=== PATIENT | female | born 1965 | race Caucasian/White ===

== ENCOUNTER → 2017-01-22 | Day surgery (SDC) | payer BC ==
[~2017-01-22] MED LIST: ALPRAZOLAM PO; CELECOXIB200 MG PO; CERTAGEN PO; CLARITIN10 M3 DOB; CLARITIN10 MG PO; FLONASE16 GM; LEVOTHYROXINE25 MCG PO; LOSARTAN POTASS50 MG PO; MOBIC PO; OMEPRAZOLE20 M2 PO; PRAVASTATIN SOD20 MG PO; RESTASIS MULTI5.5 ML; SEASONALE1 BLIST PA PO; SYNTHROID PO; TYLENOL ARTHRITIS; VICODIN 5/500 T1 TAB PO; VIT B; VITAMIN C PO; WELLBUTRIN PO
--- NOTE | ~2017-01-22 | OR ---
Unit #: [id number] #: [id number] Patient: CAN TEJEDA [id number] [address] [address] [id number] O MR#: [id number] NAME: CAN TEJEDA ROOM: Date of Procedure: 01/22/2017 Admission Date: 01/22/2017 Surgeon: Jere Croft M.D. : 1965 Attending Physician: Jere Croft M.D. Primary Care Physician: Ana Lau M.D. OPERATIVE REPORT PROCEDURE PERFORMED Colonoscopy to cecum. INDICATIONS FOR PROCEDURE A 51-year-old female with average risk for colorectal cancer. MEDICATIONS Monitored anesthesia. POSTOPERATIVE FINDINGS 1. Colonoscopy completed to cecum. Prep was good. No polyps, masses or colitis. 2. Diverticulosis noted. PLAN Repeat colonoscopy in 10 years. DESCRIPTION OF PROCEDURE The patient was explained of the procedure, risks, and benefits along with risks and benefits of anesthesia. She was brought to the endoscopy room. Propofol anesthesia was given. Rectal exam was done, which was normal. Colonoscope was lubricated, passed up the rectum, advanced under direct vision all the way to the cecum. Cecum was identified by ileocecal valve and appendiceal orifice. I then started to pull the scope out carefully looking. No polyps, masses or colitis were seen. Mucosa was normal and healthy. I retroflexed in the rectum. Small hemorrhoids seen. The scope was gently pulled out. She tolerated it well. Dictated by... Vito Stevenson/sulaiman TD: 01/23/2017 01:50 JOB #: [id number] CC: Ana Lau M.D. Unit #: [id number] #: [id number] Patient: CAN TEJEDA OPERATIVE REPORT Page 1 of 1 X Jere Croft MD X PROCEDURE OPERATIVE NOTE
== END | disposition home or self-care (01) ==
LOC: COPS 01-08 11:00
PROVIDERS: Internal Medicine
PROC: 0DJD8ZZ Inspection of Lower Intestinal Tract, Via Natural or Artificial Opening Endoscopic (ICD-10-PCS; principal; 2017-01-22 10:00)
DX: Z12.11 Encounter for screening for malignant neoplasm of colon (principal); K57.90 Diverticulosis of intestine, part unspecified, without perforation or abscess without bleeding; K64.9 Unspecified hemorrhoids; K21.9 Gastro-esophageal reflux disease without esophagitis; E03.9 Hypothyroidism, unspecified; E78.5 Hyperlipidemia, unspecified; Z79.899 Other long term (current) drug therapy; J30.2 Other seasonal allergic rhinitis; Z98.84 Bariatric surgery status; Z87.442 Personal history of urinary calculi; Z96.642 Presence of left artificial hip joint; Z96.651 Presence of right artificial knee joint